=== PATIENT | male | born 1950 ===

== ENCOUNTER → 2018-10-07 | Outpatient (CLI) | payer OTHER ==
[~2018-10-07] MED LIST: LANS30CA63 PO
--- NOTE | 2018-10-07 20:35 | RT STRESS TEST REPORT ---
FAC[place]: [facility] [place] NAME: JOSE MORENO : [id number] MR: [id number] V: [id number] EXAM DATE: ORDERING PHYSICIAN: SADIE BENDER TECHNOLOGIST: Cici [employer] Time: 2018-10-07 15:02:39 Total Exercise Time: 00:07:05 Test Indications: R07.2 Medications: none Protocol: QUINTON 2 Max HR: 141 BPM 90% of Pred: 155 BPM Max BP: 215/062 mmHG Max Work Load: 8.6 METS Sinus rhythm throughtout test. No Significant arrhythmia noted during test or recovery period Study stopped at patient request for fatigue after minimum criteria had been met. No ST changes indicating ischemia. Negative treadmill stress test. Confirmed by Cesar Zhu ([id number]) on 10/07/2018 8:34:01 PM Referred By: Overread By: Cesar Saldana
== END ==
LOC: RESP 01:25
PROVIDERS: ATTEND Family Medicine
DX: R07.2 Precordial pain (principal)
CPT/HCPCS: 93017